=== PATIENT | male | born 1995 | race Caucasian/White ===

== ENCOUNTER 2019-12-12 07:34 | Emergency (ER) | payer OTHER ==
[~2019-12-12] VITALS: Ht 180.3 cm; Wt 91.3 kg
[2019-12-12] MEDS ORDERED: FAMOTIDINE 20MG/2ML IV (PEPCID) IVP ONE (08:00)
[2019-12-12] MEDS ORDERED: NS IV 1000 ML 1,000 ML IV SCH (08:00)
--- NOTE | 2019-12-12 08:00 | ED General ---
General Stated Complaint: "FEELS FUNNY", ABD PAIN Source of Information: Patient Exam Limitations: No Limitations History of Present Illness Date Seen by Provider: Dec 12, 2019 Time Seen by Provider: 07:45 Initial Comments Patient presents with "feeling funny". Denies chest pain or shortness of air, is feeling a little like he has indigestion and maybe some reflux and maybe his heart beating irregularly or fast. Denies previous occurrence. Symptoms began last night around 8 p.m. and they have persisted. Symptoms are not severe, but just not feeling right. Denies recent illness, fever chills. Denies any nausea vomiting or diarrhea. Appetite is normal and he a normal dinner last night. Rarely drinks caffeine, just has one cup daily. Denies any illicit drug use or smoking. Does not drink any alcohol. No significant past medical history. Does admit to normal stress, no recent traumatic event and denies a history of depression or anxiety....but states, never diagnosed. Allergies and Home Medications Allergies Coded Allergies: No Known Drug Allergies (Unverified , 12/12/19) Home Medications Famotidine 20 Mg Tablet, 20 MG PO BID Prescribed by: LINDSAY HENDRIX on 12/12/19 0817 Patient Home Medication List Home Medication List Reviewed: Yes Review of Systems Review of Systems Constitutional: see HPI; No dizziness, No fever, No weakness Respiratory: No cough, No short of breath Cardiovascular: see HPI; No edema; palpitations; No syncope Gastrointestinal: No abdominal pain, No constipation, No diarrhea, No loss of appetite, No nausea, No vomiting Musculoskeletal: No back pain, No joint pain Psychiatric/Neurological: Denies Anxiety, Denies Depressed, Denies Headache, Denies Numbness, Denies Paresthesia Past [id number] Hx Past Med/Social Hx: Reviewed Nursing Past Med/Soc Hx Physical Exam Vital Signs Vital Signs - First Documented 12/12/19 08:03 Temp 36.7 Pulse 115 Resp 17 B/P (MAP) 166/107 (126) Pulse Ox 100 O2 Delivery Room Air Capillary Refill : Height, Weight, BMI Height: '" Weight: lbs. oz. kg; BMI Method: General Appearance: No Apparent Distress, WD/WN, Other (somewhat anxious) HEENT: PERRL/EOMI, TMs Normal Neck: Full Range of Motion, Normal Inspection, Non Tender Respiratory: Chest Non Tender, Lungs Clear Cardiovascular: Regular Rate, Rhythm, No Edema, No JVD, No Murmur Gastrointestinal: Non Tender, Soft Back: Normal Inspection, No CVA Tenderness Extremity: Normal Capillary Refill, Normal Inspection, Non Tender, No Calf Tenderness Neurologic/Psychiatric: Alert, Oriented x3, No Motor/Sensory Deficits, Normal Mood/Affect Comments While taking patient history and examining patient, watched his heart rate on night monitor and was noted to fluctuate between 80s to 110's outpatient was talking. Initial blood pressure also elevated, then improved. Progress/Results/Core Measures Suspected Sepsis SIRS Temperature: Pulse: Respiratory Rate: Laboratory Tests 12/12/19 08:00: White Blood Count 4.9 Blood Pressure / Mean: Laboratory Tests 12/12/19 08:00: Creatinine 0.98, Platelet Count 237 Results/Orders Lab Results Laboratory Tests Test 12/12/19 08:00 Range/Units White Blood Count 4.9 4.3-11.0 10^3/uL Red Blood Count 4.92 4.35-5.85 10^6/uL Hemoglobin 15.7 13.3-17.7 G/DL Hematocrit 47 40-54 % Mean Corpuscular Volume 95 80-99 FL Mean Corpuscular Hemoglobin 32 25-34 PG Mean Corpuscular Hemoglobin Concent 34 32-36 G/DL Red Cell Distribution Width 12.2 10.0-14.5 % Platelet Count 237 130-400 10^3/uL Mean Platelet Volume 10.0 7.4-10.4 FL Neutrophils (%) (Auto) 52 42-75 % Lymphocytes (%) (Auto) 38 12-44 % Monocytes (%) (Auto) 8 0-12 % Eosinophils (%) (Auto) 1 0-10 % Basophils (%) (Auto) 1 0-10 % Neutrophils # (Auto) 2.5 1.8-7.8 X 10^3 Lymphocytes # (Auto) 1.8 1.0-4.0 X 10^3 Monocytes # (Auto) 0.4 0.0-1.0 X 10^3 Eosinophils # (Auto) 0.1 0.0-0.3 10^3/uL Basophils # (Auto) 0.0 0.0-0.1 10^3/uL Sodium Level 142 135-145 MMOL/L Potassium Level 3.9 3.6-5.0 MMOL/L Chloride Level 104 98-107 MMOL/L Carbon Dioxide Level 26 21-32 MMOL/L Anion Gap 12 5-14 MMOL/L Blood Urea Nitrogen 15 7-18 MG/DL Creatinine 0.98 0.60-1.30 MG/DL Estimat Glomerular Filtration Rate > 60 BUN/Creatinine Ratio 15 Glucose Level 122 H 70-105 MG/DL Calcium Level 9.2 8.5-10.1 MG/DL My Orders Orders - LINDSAY HENDRIX DO Ed Iv/Invasive Line Start (12/12/19 07:54) Cbc With Automated Diff (12/12/19 07:54) Basic Metabolic Panel (12/12/19 07:54) Ekg Tracing (12/12/19 07:54) Ns Iv 1000 Ml (Sodium Chloride 0.9%) (12/12/19 08:00) Famotidine Injection (Pepcid Injection) (12/12/19 08:00) Medications Given in ED Current Medications Medications Dose Ordered Sig/Ramona Route Start Time Stop Time Status Last Admin Dose Admin Famotidine 20 mg ONCE ONCE IVP 12/12/19 08:00 12/12/19 08:01 DC 12/12/19 08:16 20 MG Vital Signs/I&O 12/12/19 12/12/19 08:03 09:03 Temp 36.7 36.7 Pulse 115 82 Resp 17 17 B/P (MAP) 166/107 (126) 125/87 (126) Pulse Ox 100 100 O2 Delivery Room Air Capillary Refill : Progress Note : Progress Note felt significantly better after IVF and Pepcid IV. Discussed normal lab eval and ECG. Pt no longer having runs of sinus tach. HR stable in 80's. Discussed follow up w PCP should symptoms reoccur, ER sooner if worse. Suspect anxiety component, but possible mild dehydration or stomach upset as precipitating cause. Pt denies new stress or problems w anxiety. ECG Initial ECG Impression Time: 08:05 Initial ECG Rhythm: Normal Sinus Initial ECG Intervals: Normal Initial ECG Impression: Normal Departure Impression Primary Impression: Chest discomfort Additional Impression: Palpitations Disposition: 01 HOME, SELF-CARE Condition: Improved Departure-Patient Inst. Referrals: SELF,COLUMBA BURKS (PCP/Family) Primary Care Physician Patient Instructions: Palpitations (DC) Scripts Famotidine (Pepcid) 20 Mg Tablet 20 MG PO BID, #14 TAB Prov: LINDSAY HENDRIX DO 12/12/19 LINDSAY HENDRIX DO Dec 12, 2019 08:00
[2019-12-12 08:12] LABS: HEMATOCRIT 47 % (40-54); HEMOGLOBIN 15.7 G/DL (13.3-17.7); MEAN CORPUSCULAR HEMOGLOBIN 32 PG (25-34); MEAN CORPUSCULAR HGB CONC 34 G/DL (32-36); MEAN CORPUSCULAR VOLUME 95 FL (80-99); PLATELET COUNT 237 10^3/uL (130-400); RED CELL DISTRIBUTION WIDTH 12.2 % (10.0-14.5); WHITE BLOOD COUNT 4.9 10^3/uL (4.3-11.0)
[2019-12-12 08:13] LABS: BASOPHILS % (AUTO) 1 % (0-10); EOSINOPHILS # (AUTO) 0.1 10^3/uL (0.0-0.3); EOSINOPHILS % (AUTO) 1 % (0-10); LYMPHOCYTES # (AUTO) 1.8 X 10^3 (1.0-4.0); LYMPHOCYTES % (AUTO) 38 % (12-44); MONOCYTES # (AUTO) 0.4 X 10^3 (0.0-1.0); MONOCYTES % (AUTO) 8 % (0-12); NEUTROPHILS # (AUTO) 2.5 X 10^3 (1.8-7.8); NEUTROPHILS % (AUTO) 52 % (42-75)
[2019-12-12 08:44] LABS: BUN/CREATININE RATIO 15; CARBON DIOXIDE 26 MMOL/L (21-32); CHLORIDE 104 MMOL/L (98-107); CREATININE SERUM 0.98 MG/DL (0.60-1.30); GFR ESTIMATED > 60; POTASSIUM 3.9 MMOL/L (3.6-5.0); SODIUM 142 MMOL/L (135-145)
[2019-12-12 08:45] LABS: CALCIUM 9.2 MG/DL (8.5-10.1); GLUCOSE 122 MG/DL (70-105)
[2019-12-12] MEDS ORDERED: FAMO-119 PO (08:57)
[2019-12-12 09:03] VITALS: BP 125/87
== END 2019-12-12 09:00 | disposition home or self-care (01) ==
LOC: ER FS 07:36
DX: R07.89 Other chest pain (principal); R00.2 Palpitations
CPT/HCPCS: 36415; 80048; 85025; 93005; 96361; 96374